=== PATIENT | female | born 1995 | race African-American/Black ===

== ENCOUNTER 2019-07-23 08:23 | Emergency (ER) | payer SELFPAY ==
--- NOTE | 2019-07-23 10:14 | ER Document Report ---
ED General - General Chief Complaint: Abdominal Pain Stated Complaint: LOW ABDOMINAL PAIN Time Seen by Provider: 07/23/19 09:45 TRAVEL OUTSIDE OF THE [place] IN LAST 30 DAYS: No - HPI Notes: Patient is a 23-year-old female who presents emergency department for evaluation of suprapubic pressure. Is been ongoing for about a month. She states about a month ago she developed increased lower back pain and suprapubic pain. She was seen in urgent care, told that nothing was wrong with her lower back. She states her lower back pain got better but the pain in her suprapubic region has not. Is a constant pressure. It is not exacerbated or improved by anything. Mother states that she has had "bladder complaints" intermittently throughout her entire life. She states that she always just attributed this to her possibly a "small bladder" and she is never really followed up with anyone in regards to it. No fevers or chills. No nausea or vomiting. The patient denies any vaginal discharge. She has never had any sort of sexual activity. - Related Data Allergies/Adverse Reactions: No Known Allergies Allergy (Unverified 07/23/19 08:31) Home Medications: None Past Medical History - General Information source: Patient - Social History Smoking Status: Never Smoker Chew tobacco use (# tins/day): No Drug Abuse: None Family History: Other - Mother with sarcoidosis, sickle cell trait Patient has suicidal ideation: No Patient has homicidal ideation: No - Medical History Medical History: Negative Review of Systems - Review of Systems Constitutional: No symptoms reported EENT: No symptoms reported Cardiovascular: No symptoms reported Respiratory: No symptoms reported Gastrointestinal: No symptoms reported Genitourinary: See HPI Female Genitourinary: No symptoms reported Musculoskeletal: No symptoms reported Hematologic/Lymphatic: No symptoms reported Physical Exam - Vital signs Vitals: Temp Pulse Resp BP Pulse Ox 97.9 F 72 16 118/66 99 07/23/19 08:28 07/23/19 08:28 07/23/19 08:28 07/23/19 08:28 07/23/19 08:28 - Notes Notes: Vital signs reviewed, please refer to chart. Head is normocephalic, atraumatic. Pupils equal round, reactive to light. Neck is supple without meningismus. Heart is regular rate and rhythm. Lungs are clear to auscultation bilaterally. Abdomen is soft, nontender, normoactive bowel sounds throughout. Extremities without cyanosis, clubbing. Posterior calves are nontender. Peripheral pulses are equal. Skin is warm and dry. Patient is awake, alert, neurological exam is nonfocal. Course - Re-evaluation Re-evalutation: 07/23/19 10:13 Patient presents emergency department for evaluation. Her abdominal exam is entirely nontender and benign. Urinalysis is ordered and pending at this time. I initially had ordered GC and chlamydia, but the patient adamantly states that she has never had any sort of sexual intercourse. These were canceled. At this point, given the ongoing nature of these issues, I suspect that she should be evaluated by urology. Awaiting urinalysis at this time, we will continue to monitor. 07/23/19 11:06 Urinalysis came back and revealed some blood, but the patient is currently menstruating. No other significant abnormality was noted. This is been an ongoing issue for some time. Certainly she can have some relief with symptomatic medications like Pyridium, but I do not believe that we will address the underlying problem. Will refer on to urology. Return to the ED with worsening. - Vital Signs Vital signs: Temp Pulse Resp BP Pulse Ox 97.9 F 72 16 118/66 99 07/23/19 08:28 07/23/19 08:28 07/23/19 08:28 07/23/19 08:28 07/23/19 08:28 - Laboratory Laboratory results interpreted by me: 07/23/19 09:40 Urine Blood LARGE H Discharge - Discharge Clinical Impression: Suprapubic abdominal pain Condition: Stable Disposition: HOME, SELF-CARE Instructions: Abdominal Pain ([facility]) Additional Instructions: No clear cause was found for your symptoms today. Please follow-up with urology as an outpatient. Take the Pyridium as needed for severe pressure. Please note that this will change the color of your urine. It should not be taken for 24 hours prior to a urinalysis. Also, if you wear contact lenses, please remove these while taking this medication. Follow-up with primary care in 1 to 2 weeks. Return to the ED with worsening or new concerning symptoms of any sort. [facility] [email or web address] beds at [email or web address] [address] [place] [address] Alena Graves [email or web address] [address]
[2019-07-23 10:31] LABS: APPEARANCE,URINE CLEAR; BILIRUBIN,URINE NEGATIVE (NEGATIVE); COLOR,URINE COLORLESS; GLUCOSE, URINE NEGATIVE (NEGATIVE); KETONES,URINE NEGATIVE (NEGATIVE); LEUKOCYTE ESTERASE,URINE NEGATIVE (NEGATIVE); NITRITE,URINE NEGATIVE (NEGATIVE); PROTEIN,URINE NEGATIVE (NEGATIVE); URINE SPECIFIC GRAVITY 1.003; UROBILINOGEN,URINE NEGATIVE mg/dL (<2.0)
[2019-07-23 11:10] VITALS: BP 120/69
== END 2019-07-23 11:11 | disposition home or self-care (01) ==
LOC: ER 08:23
DX: R10.30 Lower abdominal pain, unspecified (principal); M54.5 Low back pain
CPT/HCPCS: 81001; 99284

== ENCOUNTER 2020-01-09 08:45 | Emergency (ER) | payer SELFPAY ==
[2020-01-09 11:01] LABS: APPEARANCE,URINE CLEAR; BILIRUBIN,URINE NEGATIVE (NEGATIVE); COLOR,URINE YELLOW; GLUCOSE, URINE NEGATIVE (NEGATIVE); KETONES,URINE NEGATIVE (NEGATIVE); LEUKOCYTE ESTERASE,URINE NEGATIVE (NEGATIVE); NITRITE,URINE NEGATIVE (NEGATIVE); PROTEIN,URINE NEGATIVE (NEGATIVE); URINE SPECIFIC GRAVITY 1.019; UROBILINOGEN,URINE NEGATIVE mg/dL (<2.0)
[2020-01-09 11:02] LABS: ABSOLUTE LYMPHOCYTES (AUTO) 1.7 10^3/uL (0.5-4.7); ABSOLUTE MONOCYTES (AUTO) 0.4 10^3/uL (0.1-1.4); ABSOLUTE NEUT (AUTO) 1.6 10^3/uL (1.7-8.2); BASOPHILS % (AUTO) 0.9 % (0-2); EOSINOPHILS % (AUTO) 0.7 % (0-6); HEMATOCRIT 39.2 % (36.0-47.0); HEMOGLOBIN 13.4 g/dL (12.0-15.5); LYMPHOCYTES % (AUTO) 45.1 % (13-45); MEAN CORPUSCULAR HEMOGLOBIN 31.1 pg (27.0-33.4); MEAN CORPUSCULAR HGB CONC 34.2 g/dL (32.0-36.0); MEAN CORPUSCULAR VOLUME 91 fl (80-97); MONOCYTES % (AUTO) 10.7 % (3-13); PLATELET COUNT 240 10^3/uL (150-450); RED BLOOD COUNT 4.31 10^6/uL (3.72-5.28); RED CELL DISTRIBUTION WIDTH 12.5 % (11.5-14.0); SEGMENTED NEUTROPHILS % (AUTO) 42.6 % (42-78); TOTAL CELLS COUNTED % (AUTO) 100 %; WHITE BLOOD COUNT 3.8 10^3/uL (4.0-10.5)
[2020-01-09 11:18] LABS: ALBUMIN 4.5 g/dL (3.5-5.0); ALKALINE PHOSPHATASE 67 U/L (38-126); ANION GAP 6 (5-19); ASPARTATE AMINO TRANSFERASE 19 U/L (14-36); BLOOD UREA NITROGEN 10 mg/dL (7-20); CARBON DIOXIDE 30 mmol/L (22-30); CHLORIDE 100 mmol/L (98-107); GLUCOSE 81 mg/dL (75-110); POTASSIUM 4.5 mmol/L (3.6-5.0); TOTAL PROTEIN 7.8 g/dL (6.3-8.2)
--- NOTE | 2020-01-09 11:30 | ER Document Report ---
ED General - General Chief Complaint: Flank Pain Stated Complaint: BACK PAIN Time Seen by Provider: 01/09/20 11:06 Primary Care Provider: HILTON BURCIAGA DO [Primary Care Provider] - Follow up as needed TRAVEL OUTSIDE OF THE [place] IN LAST 30 DAYS: No - HPI Notes: Chief complaint: Suprapubic and back discomfort History of present illness: 24-year-old female seen here by another provider in July of this year with complaint of intermittent suprapubic discomfort and back pain. Work-up including CBC, chemistry profile, test, urinalysis and complete examination was all unremarkable. She was advised to see urologist for follow-up if symptoms persisted. She never did so. Symptoms seem to get better but within the last week have returned. She describes it is intermittent cramping sensation suprapubic area sometimes radiating into either side of her back. She wondered if she could possibly have a UTI. Says she is not had any UTIs in the past. She denies burning with urination, fever, chills, nausea or vomiting. Last menses 2 weeks ago described as normal. Patient is not sexually active. Takes no medications. No known allergies. 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 Rare social alcohol consumption. Non-smoker. Denies drug use. No prior hospitalizations or surgery. No vaginal discharge or abnormal vaginal bleeding. - Related Data Allergies/Adverse Reactions: No Known Allergies Allergy (Unverified 07/23/19 08:31) Past Medical History - General Information source: Patient, [facility] Records - Social History Smoking Status: Never Smoker Frequency of alcohol use: None Drug Abuse: None Family History: Other - Mother with sarcoidosis, sickle cell trait Review of Systems - Review of Systems Notes: Constitutional: Negative for fever. HENT: Negative for sore throat. Eyes: Negative for visual changes. Cardiovascular: Negative for chest pain. Respiratory: Negative for shortness of breath. Gastrointestinal: Negative for abdominal pain, vomiting or diarrhea. Genitourinary: As per HPI. Musculoskeletal: As per HPI. Skin: Negative for rash. Neurological: Negative for headaches, weakness or numbness. 10 point ROS negative except as marked above and in HPI. Physical Exam - Vital signs Vitals: Temp Pulse Resp BP Pulse Ox 97.8 F 67 20 124/69 93 01/09/20 08:49 01/09/20 08:49 01/09/20 08:49 01/09/20 08:49 01/09/20 08:49 - Notes Notes: GENERAL: Well-developed well-nourished appearing in no acute distress. SKIN: Good turgor no rashes. HEAD: Normocephalic atraumatic. EYES: PERRLA. EOMI. Conjunctivae and sclerae clear. EARS: CANALS AND TMS CLEAR. NOSE: CLEAR. MOUTH: Moist mucosa. Good dentition. No stridor or edema. No drooling. NECK: Supple. No masses or thyromegaly. No adenopathy. Carotids 2+ without bruits. No JVD. BACK: Symmetrical without tenderness. CHEST: Respirations unlabored. Breath sounds clear and symmetrical. HEART: Regular rhythm. No murmur gallop or rub. ABDOMEN: Soft nontender without masses, organomegaly or rebound. Bowel sounds normally active. No bruits. EXTREMITIES: No edema. No calf tenderness. Cap refill less than 1.5 seconds. Dorsalis pedis and posterior tibial pulses 3+ and symmetrical. NEUROLOGICAL: GCS 15. Alert and oriented x3. Normal gait. Fluent speech. Cranial nerves II through XII intact. Sensorimotor and cerebellar normal. Normal tone. PSYCHIATRIC: Appropriate affect. Course - Re-evaluation Re-evalutation: 01/09/20 11:31 Urinalysis showed only 2 white cells with negative leukocyte esterase and n itrite. Her CBC, comprehensive metabolic profile, lipase and test were all normal. Her physical exam is entirely normal. Again advised patient follow-up with primary care physician or urologist. I have reassured her as to current findings. 01/09/20 11:34 Findings, clinical impression and plan of treatment have been discussed with patient/family. Understanding of current findings and recommendations has been acknowledged by them and there is agreement regarding disposition and follow-up. - Vital Signs Vital signs: Temp Pulse Resp BP Pulse Ox 97.8 F 67 20 124/69 93 01/09/20 08:49 01/09/20 08:49 01/09/20 08:49 01/09/20 08:49 01/09/20 08:49 - Laboratory Result Diagrams: 01/09/20 10:38 01/09/20 10:38 Laboratory results interpreted by me: 01/09/20 01/09/20 10:38 10:38 WBC 3.8 L Lymph % (Auto) 45.1 H Absolute Neuts (auto) 1.6 L Sodium 136.1 L Discharge - Discharge Clinical Impression: Suprapubic pain Condition: Stable Disposition: HOME, SELF-CARE Additional Instructions: Increase oral fluids. Return here as needed for new or worsening symptoms: Pain that is worsening or unimproved Uncontrolled vomiting High fever or shaking chills Overall worsening Follow-up with your primary care physician within the next 2 weeks. Referrals: HILTON BURCIAGA DO [Primary Care Provider] - Follow up as needed
[2020-01-09 11:44] VITALS: BP 99/65
== END 2020-01-09 11:46 | disposition home or self-care (01) ==
LOC: ER 08:45
DX: R10.30 Lower abdominal pain, unspecified (principal); M54.9 Dorsalgia, unspecified
CPT/HCPCS: 36415; 80053; 81001; 83690; 84703; 85025; 99284